=== PATIENT | male | born 1970 | race Two or more races ===

== ENCOUNTER 2022-03-17 00:05 | Emergency (ER) | payer OTHER ==
[~2022-03-17] VITALS: Ht 180.3 cm; Wt 74.8 kg
[2022-03-17] MEDS ORDERED: ZYNCOF 20-400120 ML PO (03:48)
== END 2022-03-17 04:03 ==
LOC: ER 00:05
DX: R06.02 Shortness of breath (principal); Z88.0 Allergy status to penicillin